=== PATIENT | male | born 1985 | race Caucasian/White ===

== ENCOUNTER → 2021-04-20 | Outpatient (CLI) | payer OTHER ==
--- NOTE | 2021-05-12 18:37 | SLEEP ---
[place] [address] SLEEP STUDY REPORT Name: KAIA JORDAN Room: [facility]#: [id number] Admission: 04/20/21 Attend Phys: Blaine Terry MD Discharge: Date of : 83 Report #: [id number] THIS REPORT FOR: cc: Andrew Mohamud Vincent R. DO Pervez, Adeel MD ~ DATE OF STUDY: 04/20/2021 HOME SLEEP STUDY INTERPRETATION: Total duration of the study is 595 minutes. During this time duration, we recorded multiple sleep related respiratory events. These included 300 obstructive apneas in addition to 5 apneas, 13 mixed apneas and 4 hypopneas. Overall, apnea-hypopnea index is 32.5 consistent with severe obstructive sleep apnea. Body position data indicates the patient was observed in the supine position for 397 minutes and the rest of the time the patient was on the right side. Interestingly, despite severe obstructive sleep apnea, O2 saturation mostly is maintained at or above 90%. Mean heart rate is 57. IMPRESSION: Severe obstructive sleep apnea with an apnea-hypopnea index of 32.5. There is no obvious positional variation despite severe obstructive sleep apnea being present. O2 saturation is mostly maintained at or above 90% during the sleep study. RECOMMENDATIONS: Both the use of a CPAP auto titrated device as well as proceeding with an in-lab sleep study for positive airway pressure titration are options for this patient considering a marked elevation in apnea-hypopnea index perhaps I would favor an in-lab sleep study for positive airway pressure titration. This entire sleep study was reviewed by board certified sleep physician. <ELECTRONICALLY SIGNED> By: Blaine Terry MD 05/12/21 [id number] [id number] Terry MD /nt
== END ==
LOC: M.PUL 04-13 10:00
PROVIDERS: ATTEND Internal Medicine Critical Care Medicine
DX: G47.33 Obstructive sleep apnea (adult) (pediatric) (principal); R09.02 Hypoxemia; G47.19 Other hypersomnia